=== PATIENT | male | born 1980 | race Hispanic/Latino ===

== ENCOUNTER 2016-07-24 18:23 | Emergency (ER) | payer BC ==
[2016-07-24 18:40] VITALS: BP 121/68; PULSE 73; RESP 20; TEMP 98.5; O2SAT 99
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
== END 2016-07-24 19:34 | disposition home or self-care (01) ==
LOC: H.ER 18:23
DX: S61.011A Laceration without foreign body of right thumb without damage to nail, initial encounter (principal); W45.8XXA Other foreign body or object entering through skin, initial encounter; W22.8XXA Striking against or struck by other objects, initial encounter; Y93.E9 Activity, other interior property and clothing maintenance; Y99.9 Unspecified external cause status